=== PATIENT | female | born 1990 | race Two or more races ===

== ENCOUNTER 2020-01-10 18:51 | Emergency (ER) | payer MEDICAID ==
[~2020-01-10] VITALS: Ht 152.4 cm; Wt 61.2 kg
--- NOTE | 2020-01-10 18:58 | NUR ---
ED Nurse Note: Pt ambulated to ED from home d/t facial drooping and right eye twitching x 2 days. No medical hx stated. Pt is AOx4, calm and cooperative, pt's vss, on ra, afebrile on triage. Placed on bed, hooked to child monitor.
[2020-01-10 19:05] VITALS: BP 121/78
--- NOTE | 2020-01-10 19:14 | NUR ---
ED Nurse Note: ERMD at bedside.
--- NOTE | 2020-01-10 19:16 | NUR ---
ED Nurse Note: Hand off given to Tom Cuevas RN for continuity of care.
--- NOTE | 2020-01-10 19:26 | Emergency Room Report ---
History of Present Illness General Chief Complaint: General Complaint Source: Patient Present Illness HPI 29-year-old otherwise healthy female here with left-sided facial weakness for 2 days. Patient says that 2 days ago she woke and noticed that her left side of her face felt "numb and tingly" and said that she was unable to fully close her eye. She says that throughout the day this weakness worsened and now includes left forehead, left mid face, left lower face. Has never had this before. No vesicular skin rashes or other eruptions. She is sexually active with her only and he has had no symptoms. Denies any other focal numbness or weakness. No vision changes. No headaches, fevers, chills, other paresthesias , chest pain, palpitation, shortness of breath, back pain, abdominal pain, nausea, vomiting, diarrhea, dysuria. Allergies: Coded Allergies: No Known Allergies (Unverified , 01/10/20) COVID-19 Screening Contact w/high risk pt: No Experienced COVID-19 symptoms?: No COVID-19 Testing performed HOMOEOPATH: No Patient History Now: No Nursing Documentation-[facility] Past Medical History: No Stated History Review of Systems All Other Systems: negative except mentioned in HPI Physical Exam Vital Signs Date Time Temp Pulse Resp B/P (MAP) Pulse Ox O2 Delivery O2 Flow Rate FiO2 01/10/20 18:52 98.8 71 19 121/78 (92) 99 Room Air Sp02 EP Interpretation: reviewed, normal General Appearance: no apparent distress, alert, GCS 15, non-toxic Head: normocephalic, atraumatic Eyes: bilateral eye normal inspection, bilateral eye PERRL ENT: hearing grossly normal, normal pharynx, no angioedema, normal voice Neck: full range of motion, supple/symm/no masses Respiratory: chest non-tender, lungs clear, normal breath sounds, speaking full sentences Cardiovascular #1: regular rate, rhythm, no edema Cardiovascular #2: 2+ carotid (R), 2+ carotid (L), 2+ radial (R), 2+ radial (L) , 2+ dorsalis pedis (R), 2+ dorsalis pedis (L) Gastrointestinal: normal bowel sounds, non tender, soft, non-distended, no guarding, no rebound Rectal: deferred Musculoskeletal: back normal, normal range of motion, calf tenderness, gait/ station normal, non-tender Neurologic: alert, motor strength/tone normal, oriented x3, responsive, speech normal, other - Patient unable to fully raise left eyebrow. Weakness of the left forehead musculature. Unable to fully close left eyelids. Left lower facial droop. No right facial deficits. No other focal numbness or weakness. No pronator drift. Normal gait. Psychiatric: judgement/insight normal, memory normal, mood/affect normal, no suicidal/homicidal ideation Medical Decision Making Diagnostic Impression: Primary Impression: Pillai's palsy ER Course 29-year-old female here with left-sided facial weakness. Patient's vagal shoulder weakness has been ongoing for 2 days. Denies fevers or chills or any vesicular eruptions.-year-old facial weakness of the entire left face including the left forehead without any forehead sparing whatsoever. Rest of physical examination was completely unremarkable. Patient no headaches or vision changes or other focal numbness or weakness. Findings consistent with Pillai's palsy. Very low likelihood of CVA given the lack of any other findings and lack of forehead sparing. Patient was given prescription for artificial tears, 7 days of prednisone and acyclovir. She was told that she needs an eye covering which she can get [id number] at the pharmacy. Told to come back to the emergency department she has any headaches, blurry vision, other focal numbness or weakness, word finding difficulty. She expressed understanding and was discharged. Last Vital Signs Date Time Temp Pulse Resp B/P (MAP) Pulse Ox O2 Delivery O2 Flow Rate FiO2 01/10/20 19:05 71 19 Room Air 01/10/20 19:05 98.8 121/78 99 Scripts Dextran 70/Hypromellose (ARTIFICIAL TEARS) 1 Each Droperette 1 EACH OP Q1HR for 7 Days, UNIT Prov: Reji Fonseca M.D. 01/10/20 Acyclovir* (ACYCLOVIR*) 400 Mg Tablet 400 MG ORAL FIVE TIMES A DAY for 7 Days, TAB Prov: Reji Fonseca M.D. 01/10/20 Prednisone* (PREDNISONE*) 20 Mg Tablet 60 MG ORAL DAILY for 7 Days, #21 TAB Prov: Reji Fonseca M.D. 01/10/20 Referrals: NOT CHOSEN TR[facility]I/,REFERRING (PCP) Reji Fonseca M.D. Jan 10, 2020 19:26
[2020-01-10] MEDS ORDERED: PREDNISONE20 MG ORAL (19:31)
[2020-01-10] MEDS ORDERED: ARTIFICIAL TEA1 EAC2 OP (19:31)
[2020-01-10] MEDS ORDERED: ACYCLOVIR400 MG ORAL (19:31)
[2020-01-10 19:40] VITALS: BP 121/78
--- NOTE | 2020-01-10 19:40 | NUR ---
ER DISCHARGE NOTE: Patient is cleared to be discharged per ERMD, pt is aox4, on room air, with stable vital signs. pt was given dc and prescription instructions, pt was able to verbalize understanding, pt id band removed without complications. pt is able to ambulate with steady gait. pt took all belongings.
== END 2020-01-10 19:40 | disposition home or self-care (01) ==
LOC: EMR 19:17
DX: G51.0 Bell's palsy (principal)
CPT/HCPCS: 99282